=== PATIENT | female | born 1970 | race Caucasian/White ===

== ENCOUNTER → 2018-06-26 | Outpatient (CLI) | payer OTHER ==
[~2018-06-26] MED LIST: CAMPRAL; LACTULOSE20 GM/30 M PO; LATUDA20 MG PO; METHYLPREDNISOLO4 MG PO; MULTI VITAMIN1 EACH PO; OMEPRAZOLE10 MG PO; OXYCONTIN10 M1 PO; VITAMIN B-1100 M1 PO; XANAX 0.25 MG0.25 MG PO; XIFAXAN550 MG PO; ZOLOFT25 MG PO
== END ==
LOC: M.ULTRA 06-25 09:30
DX: K70.30 Alcoholic cirrhosis of liver without ascites (principal); K72.90 Hepatic failure, unspecified without coma; N28.1 Cyst of kidney, acquired

== ENCOUNTER 2018-07-13 12:51 | Emergency (ER) | payer OTHER ==
[~2018-07-13] VITALS: Ht 165.1 cm; Wt 89.4 kg
[2018-07-13] MEDS ORDERED: OXYCONTIN10 M1 PO (13:04)
[2018-07-13 13:52] LABS: ABSOLUTE EOSINOPHILS 0.1 thou/uL (0.0-0.7); ABSOLUTE LYMPHOCYTES 2.1 thou/uL (0.8-5.3); ABSOLUTE MONOCYTES 0.6 thou/uL (0.0-1.2); ABSOLUTE NEUTROPHILS 3.9 thou/uL (1.6-8.1); BASOPHILS 0.6 %; EOSINOPHILS 0.8 %; HEMATOCRIT 41.1 % (37.0-47.0); HEMOGLOBIN 14.2 gm/dL (12.0-15.0); LYMPHOCYTES 30.8 %; MCH 31.5 pg (26.0-34.0); MCHC 34.5 g/dL (28.0-37.0); MCV 91.4 fL (80.0-100.0); MONOCYTES 9.5 %; MPV 10.7 fl. (7.2-11.1); NUCLEATED RBCS 0 /100WBC; PLATELET COUNT* 94 thou/uL (150-400); POLYS 58.3 %; RDW-CV 13.4 % (10.5-14.5); WBC 6.7 thou/uL (4.0-11.0)
[2018-07-13 14:04] LABS: ALBUMIN 3.5 g/dL (3.4-5.0); CALCIUM 9.2 mg/dL (8.5-10.1); CREATININE 0.8 mg/dL (0.6-1.3); POTASSIUM 3.6 mmol/L (3.5-5.1); TOTAL BILIRUBIN 0.7 mg/dL (<0.1-1.0); TOTAL PROTEIN 6.8 g/dL (6.4-8.2)
[2018-07-13] MEDS ORDERED: HALDOL 0.5 MG0.5 MG PO (14:54)
[2018-07-13 15:05] VITALS: BP 120/88
== END 2018-07-13 15:05 | disposition home or self-care (01) ==
LOC: M.ERS 12:51
PROVIDERS: Personal Emergency Response Attendant
DX: F20.9 Schizophrenia, unspecified (principal); Z76.0 Encounter for issue of repeat prescription; G89.29 Other chronic pain; M54.9 Dorsalgia, unspecified

== ENCOUNTER → 2020-01-15 | Outpatient (CLI) | payer OTHER ==
[~2020-01-15] MED LIST changes: +HALDOL 0.5 MG0.5 MG PO
== END ==
LOC: M.ULTRA 01-04 07:30
PROVIDERS: ATTEND Internal Medicine Gastroenterology
DX: N28.1 Cyst of kidney, acquired (principal); K74.60 Unspecified cirrhosis of liver